=== PATIENT | male | born 1960 | race Hispanic/Latino ===

== ENCOUNTER → 2019-12-24 | Day surgery (SDC) | payer BC ==
[2019-12-22 16:42] LABS: BASOPHILS # (AUTO) 0.1 (0.0-0.1); BASOPHILS % 0.6 % (0.0-1.0); EOSINOPHILS # (AUTO) 0.2 (0.0-0.4); EOSINOPHILS % 2.9 % (0.0-6.0); HEMATOCRIT 42.7 % (38.2-49.6); HEMOGLOBIN 14.2 g/dL (14.0-18.0); LYMPHOCYTES # (AUTO) 1.9 (1.0-3.2); LYMPHOCYTES % 22.6 % (18.0-39.1); MEAN CORPUSCULAR HGB CONC 33.3 g/dL (31-35); MEAN CORPUSCULAR VOLUME 90.1 fL (81-99); MONOCYTES # (AUTO) 0.7 (0.2-0.8); MONOCYTES % 8.4 % (4.4-11.3); NEUTROPHILS # (AUTO) 5.3 (2.1-6.9); NEUTROPHILS % 64.5 % (38.7-80.0); PLATELET COUNT 299 x10e3/uL (140-360); RED BLOOD COUNT 4.74 x10e6/uL (4.3-5.7); RED CELL DISTRIBUTION WIDTH 13.4 % (11.7-14.4)
[2019-12-22 16:51] LABS: INR 0.96; PROTHROMBIN TIME 13.3 seconds (11.9-14.5)
[2019-12-22 16:52] LABS: PARTIAL THROMBOPLASTIN TIME 28.6 seconds (23.8-35.5)
[2019-12-22 16:56] LABS: ANION GAP 10.5 mmol/L (8-16); CALCIUM 9.3 mg/dL (8.4-10.2); CREATININE, SERUM 3.55 mg/dL (0.72-1.25); POTASSIUM 4.5 mmol/L (3.5-5.1)
[~2019-12-24] MED LIST: AMLODIPINE BES2.5 MG PO; ATORVASTATIN CA20 MG PO; BENZOCAINE/TETRACAINE/BUTAMBEN AERO SPRAY 56 GM CAN ONE; FENOFIBRATE145 MG PO; FENTANYL CITRATE/PF 100MCG/2 ML INJ ONE; FLOMAX0.4 MG PO; GLUCAGON FOR INJ 1 MG VIAL ONE; LANSOPRAZOLE30 MG PO; METOCLOPRAMIDE HCL 10 MG/2ML VIAL ONE; MIDAZOLAM HCL 2 MG/2 ML VIAL ONE; PROPOFOL IV EMULSION 10 MG/ML 50 ML VIAL ONE; ULORIC40 MG PO
[2019-12-24 12:14] VITALS: BP 96/64
--- NOTE | 2019-12-24 13:19 | Operative Report ---
DATE OF PROCEDURE: 12/24/2019 SURGEON: Pablo Deal MD PROCEDURES PERFORMED: Esophagogastroduodenoscopy with polypectomy and biopsies and esophageal dilatation and colonoscopy with polypectomy and biopsies. INDICATIONS FOR ESOPHAGOGASTRODUODENOSCOPY: Heartburn, reflux, dysphagia to solids. INDICATIONS FOR COLONOSCOPY: Fecal incontinence and personal history of colon polyps. MEDICATIONS: The patient was done under MAC, please see anesthesiologist's note. PROCEDURE IN DETAIL: With the patient in left lateral decubitus position, flexible fiberoptic Olympus gastroscope was introduced into the esophagus under direct visualization without any difficulty. There was some patchy erythema noted in the distal esophagus. Minute tongues of velvety-red mucosa were noted to extend proximally from the GE junction. Biopsies were obtained to rule out Jara. There was a mild stricture at the GE junction that was dilated to size 52-Divehi Tolentino. The scope was then advanced with ease into the stomach traversing a moderate-sized hiatal hernia. Mucosa overlying the antrum and the body revealed some patchy erythema and low-grade to moderate edema, and biopsies were obtained, sent to stain for Helicobacter pylori. Several hyperplastic-appearing polyps were noted in the body of the stomach and somewhat partially excised with the cold biopsy forceps. The pylorus was of normal contour and shape, was intubated with ease and the scope was advanced all the way to the second portion of the duodenum. Biopsies were obtained from the proximal second portion and duodenal bulb to rule out sprue. The scope was then withdrawn back into the stomach and retroflexed. The mucosa overlying the fundus and the cardia appeared to be within normal limits. The scope was then straightened out. It was subsequently withdrawn. The patient tolerated the procedure well. IMPRESSION: 1. Mild distal esophagitis. 2. Rule out Jara esophagus. 3. Gastroesophageal junction stricture, dilated to size 52-Divehi Tolentino. 4. Moderate-sized hiatal hernia. 5. Gastritis, biopsied, biopsies sent to stain for Helicobacter pylori. 6. Gastric polyps, several, hyperplastic appearing, body of stomach, some partially excised with the cold biopsy forceps. 7. Rule out sprue. PLAN: Follow up histology. Initiate Protonix 40 mg one p.o. q.a.m. before meals. The patient was then turned around. After adequate lubrication of the anal canal, a flexible fiberoptic Olympus colonoscope was inserted into the rectum with ease and advanced all the way to the cecum. Prep overall was suboptimal with some retained stools in the colon. The scope was then withdrawn slowly, and whatever was visualized of the mucosa overlying the cecum and ascending colon appeared to be within normal limits. One polyp was hot biopsied and polypectomy site was hemoclipped in the distal transverse colon. Diverticular disease was scattered, was more prominent in the left colon. The mucosa overlying the sigmoid and the rectum revealed some patchy [id number] inflammatory changes, and multiple random biopsies were obtained. The scope was then retroflexed into the distal rectum and moderate-sized internal hemorrhoids were noted, none of which was actively bleeding. The scope was then straightened out. It was subsequently withdrawn. A ? resolving thrombosed external hemorrhoid was noted on the way out. The patient tolerated procedure well. IMPRESSION: 1. Suboptimal prep. 2. Transverse colon polyp, hot biopsied, site hemoclipped x1. 3. Diverticulosis. 4. Proctosigmoiditis, mild. 5. Internal hemorrhoids. 6. ? resolving thrombosed external hemorrhoid. PLAN: Follow up histology. Initiate Bentyl 10 mg one p.o. t.i.d. VSL#3 one p.o. b.i.d. We will send the patient to Dr. Garces regarding ? resolving thrombosed external hemorrhoid. The patient might benefit from a followup colonoscopy in 3 to 5 years. Pablo Deal MD [facility] [place]/[facility] /[id number] cc: Wade Robertson MD
== END | disposition home or self-care (01) ==
LOC: OR 13:36
PROVIDERS: ATTEND Internal Medicine Gastroenterology
DX: K44.9 Diaphragmatic hernia without obstruction or gangrene (principal); K31.7 Polyp of stomach and duodenum; K63.5 Polyp of colon; K29.50 Unspecified chronic gastritis without bleeding; K22.2 Esophageal obstruction; K63.89 Other specified diseases of intestine; K22.8 Other specified diseases of esophagus; K21.9 Gastro-esophageal reflux disease without esophagitis; K20.9 Esophagitis, unspecified; K57.30 Diverticulosis of large intestine without perforation or abscess without bleeding; K64.8 Other hemorrhoids; I12.9 Hypertensive chronic kidney disease with stage 1 through stage 4 chronic kidney disease, or unspecified chronic kidney disease; N18.4 Chronic kidney disease, stage 4 (severe); E78.5 Hyperlipidemia, unspecified; Z01.810 Encounter for preprocedural cardiovascular examination; Z87.891 Personal history of nicotine dependence
CPT/HCPCS: 36415; 43239; 43450; 45378; 45380; 45384; 80048; 85025; 85610; 85730; 93005; J1610; J2250; J2765; J3010

== ENCOUNTER → 2020-08-21 | Outpatient (CLI) | payer BC ==
[~2020-08-21] MED LIST changes: -BENZOCAINE/TETRACAINE/BUTAMBEN AERO SPRAY 56 GM CAN ONE; -FENTANYL CITRATE/PF 100MCG/2 ML INJ ONE; -GLUCAGON FOR INJ 1 MG VIAL ONE; -METOCLOPRAMIDE HCL 10 MG/2ML VIAL ONE; -MIDAZOLAM HCL 2 MG/2 ML VIAL ONE; -PROPOFOL IV EMULSION 10 MG/ML 50 ML VIAL ONE
== END ==
LOC: SLEEP 18:11
PROVIDERS: ATTEND Otolaryngology
DX: G47.33 Obstructive sleep apnea (adult) (pediatric) (principal); Z20.828 Contact with and (suspected) exposure to other viral communicable diseases
CPT/HCPCS: 95806; U0002